=== PATIENT | female | born 1965 | race Two or more races ===

== ENCOUNTER 2020-08-02 16:17 | Emergency (ER) | payer SELFPAY ==
[~2020-08-02] VITALS: Ht 165.1 cm; Wt 72.6 kg
--- NOTE | 2020-08-02 17:10 | Emergency Room Report ---
History of Present Illness General Chief Complaint: Abdominal Pain Source: Patient Present Illness HPI Patient is reports having pain in the right pelvic area. A 54-year-old female presents for increased right lower abdominal pain. Onset for 1 day. Pain is constant in nature. Denies any vomiting or diarrhea. Onset during cooking. Denies similar symptoms in the past. Denies any hematuria or dysuria. 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 Patient History Past Medical History: see triage record Reviewed Nursing Documentation: PMH: Agreed; PSxH: Agreed Nursing Documentation-PMH Past Medical History: No Stated History Review of Systems All Other Systems: negative except mentioned in HPI Physical Exam Vital Signs Date Time Temp Pulse Resp B/P (MAP) Pulse Ox O2 Delivery O2 Flow Rate FiO2 08/02/20 16:37 98.2 68 18 145/108 (120) 96 Room Air Sp02 EP Interpretation: reviewed, normal General Appearance: normal inspection, well appearing, no apparent distress, alert Head: atraumatic ENT: normal ENT inspection, hearing grossly normal, normal voice Neck: normal inspection, full range of motion, supple, no bony tend Respiratory: normal inspection, lungs clear, normal breath sounds, no respiratory distress, no retraction, no wheezing Cardiovascular #1: regular rate, rhythm, no edema Gastrointestinal: normal inspection, normal bowel sounds, non tender, soft, no guarding, no hernia, tenderness - Right lower abdominal tenderness. 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 Differential diagnosis include was not limited to kidney stone, appendicitis, ovarian cyst among others. Because of complexity of patient's case laboratory tests and imaging studies were ordered. Patient's CT imaging showed evidence of right-sided ureteral stone 3 mm. Patient is given pain medications as well as Toradol. Patient was given pain medications with improvement her symptoms. Pelvic ultrasound showed 3 cm ovarian cyst. Patient was advised of ultrasound findings and was advised to follow-up with [facility] for recheck. This medical record is generated with [employer] product craftsman software. There may be some product craftsman discrepancies related to use of this software Labs Test 08/02/20 17:10 White Blood Count 13.7 K/UL (4.8-10.8) Red Blood Count 5.01 M/UL (4.20-5.40) Hemoglobin 14.1 G/DL (12.0-16.0) Hematocrit 44.1 % (37.0-47.0) Mean Corpuscular Volume 88 FL (80-99) Mean Corpuscular Hemoglobin 28.1 PG (27.0-31.0) Mean Corpuscular Hemoglobin Concent 31.9 G/DL (32.0-36.0) Red Cell Distribution Width 13.3 % (11.6-14.8) Platelet Count 440 K/UL (150-450) Mean Platelet Volume 5.4 FL (6.5-10.1) Neutrophils (%) (Auto) 85.1 % (45.0-75.0) Lymphocytes (%) (Auto) 11.9 % (20.0-45.0) Monocytes (%) (Auto) 2.2 % (1.0-10.0) Eosinophils (%) (Auto) 0.2 % (0.0-3.0) Basophils (%) (Auto) 0.7 % (0.0-2.0) Prothrombin Time 10.5 SEC (9.30-11.50) Prothromb Time International Ratio 0.9 (0.9-1.1) Activated Partial Thromboplast Time 27 SEC (23-33) Sodium Level 138 MMOL/L (136-145) Potassium Level 4.0 MMOL/L (3.5-5.1) Chloride Level 104 MMOL/L (98-107) Carbon Dioxide Level 25 MMOL/L (21-32) Anion Gap 9 mmol/L (5-15) Blood Urea Nitrogen 11 mg/dL (7-18) Creatinine 1.0 MG/DL (0.55-1.30) Estimat Glomerular Filtration Rate 58.2 mL/min (>60) Glucose Level 130 MG/DL (74-106) Calcium Level 8.8 MG/DL (8.5-10.1) Total Bilirubin 0.2 MG/DL (0.2-1.0) Aspartate Amino Transf (AST/SGOT) 17 U/L (15-37) Alanine Aminotransferase (ALT/SGPT) 17 U/L (12-78) Alkaline Phosphatase 79 U/L (46-116) Total Protein 7.9 G/DL (6.4-8.2) Albumin 3.5 G/DL (3.4-5.0) Globulin 4.4 g/dL Albumin/Globulin Ratio 0.8 (1.0-2.7) Last Vital Signs Date Time Temp Pulse Resp B/P (MAP) Pulse Ox O2 Delivery O2 Flow Rate FiO2 08/02/20 16:37 98.2 68 18 145/108 (120) 96 Room Air Status: improved Disposition: HOME, SELF-CARE Condition: Stable Scripts Hydrocodone/Acetaminophen 5-325* (HYDROCODONE/ACETAMINOPHEN 5-325*) 1 Each T ablet 1 TAB ORAL Q6H PRN for For Pain, #10 TAB 0 Refills Prov: Nadir Hood MD 08/02/20 Ibuprofen* (MOTRIN*) 400 Mg Tablet 400 MG ORAL Q8H, #30 TAB 0 Refills Prov: Nadir Hood MD 08/02/20 Referrals: NOT CHOSEN IPA/,REFERRING (PCP) Nadir Hood MD Aug 02, 2020 17:09
[2020-08-02 17:11] VITALS: BP 145/108
[2020-08-02] MEDS ORDERED: Omnipaque-300 100ml vial INJ PRN (17:15)
[2020-08-02 17:27] LABS: HEMATOCRIT 44.1 % (37.0-47.0); HEMOGLOBIN 14.1 G/DL (12.0-16.0); MEAN CORPUSCULAR VOLUME 88 FL (80-99); PLATELET COUNT 440 K/UL (150-450); RED BLOOD COUNT 5.01 M/UL (4.20-5.40); RED CELL DISTRIBUTION WIDTH 13.3 % (11.6-14.8); WHITE BLOOD COUNT 13.7 K/UL (4.8-10.8)
[2020-08-02 17:28] LABS: BASOPHILS % (AUTO) 0.7 % (0.0-2.0); EOSINOPHILS % (AUTO) 0.2 % (0.0-3.0); LYMPHOCYTES % (AUTO) 11.9 % (20.0-45.0); MONOCYTES % (AUTO) 2.2 % (1.0-10.0); NEUTROPHILS % (AUTO) 85.1 % (45.0-75.0)
[2020-08-02 17:37] LABS: INR 0.9 (0.9-1.1)
[2020-08-02 17:57] LABS: CALCIUM 8.8 MG/DL (8.5-10.1)
[2020-08-02] MEDS ORDERED: Morphine Sulfate 2mg/ml Inj(IV/IM USE ONLY) IVP ONE (18:00)
[2020-08-02] MEDS ORDERED: Ketorolac 30mg Inj IV ONE (18:00)
[2020-08-02 18:02] LABS: ALBUMIN 3.5 G/DL (3.4-5.0); ALBUMIN/GLOBULIN RATIO 0.8 (1.0-2.7); BILIRUBIN,TOTAL 0.2 MG/DL (0.2-1.0)
--- NOTE | 2020-08-02 18:58 | Diagnostic Imaging Report ---
ADDENDUM - Added by Sonja Kebede MD on 08/02/2020 7:26 PM (-08:00) EXAM: CT Abdomen and Pelvis With Intravenous Contrast CLINICAL HISTORY: PAIN TECHNIQUE: Axial computed tomography images of the abdomen and pelvis with intravenous contrast. CTDI is 6.00 mGy and DLP is 327.40 mGy-cm. One or more of the following dose reduction techniques were used: automated exposure control, adjustment of the mA and/or kV according to patient size, use of iterative reconstruction technique. COMPARISON: No relevant prior studies available. FINDINGS: Lung bases: No mass. No consolidation. ABDOMEN: Liver: Unremarkable. Gallbladder and bile ducts: Removed. Pancreas: Unremarkable. Spleen: Calcified granuloma. Adrenals: Unremarkable. Kidneys and ureters: Mild right hydroureteronephrosis secondary to a 3 mm stone in UVJ. Stomach and bowel: No bowel obstruction. No bowel wall thickening. PELVIS: Appendix: No evidence of appendicitis. Bladder: Unremarkable. Reproductive: 6 cm partially calcified cystic lesion in the left adnexa. ABDOMEN and PELVIS: Intraperitoneal space: Unremarkable. Bones/joints: No acute fractures. Soft tissues: Unremarkable. Vasculature: No abdominal aortic aneurysm. Lymph nodes: No enlarged lymph nodes. IMPRESSION: 1. Mild right hydroureteronephrosis secondary to a 3 mm stone in UVJ. 2. 6 cm partially calcified cystic lesion in the left adnexa. Cannot exclude cystic neoplasm. Recommend outpatient pelvic ultrasound/MRI for better characterization. EXAM: CT Abdomen and Pelvis With Intravenous Contrast CLINICAL HISTORY: PAIN TECHNIQUE: Axial computed tomography images of the abdomen and pelvis with intravenous contrast. CTDI is 6.00 mGy and DLP is 327.40 mGy-cm. One or more of the following dose reduction techniques were used: automated exposure control, adjustment of the mA and/or kV according to patient size, use of iterative reconstruction technique. COMPARISON: No relevant prior studies available. FINDINGS: Lung bases: No mass. No consolidation. ABDOMEN: Liver: Unremarkable. Gallbladder and bile ducts: Removed. Pancreas: Unremarkable. Spleen: Calcified granuloma. Adrenals: Unremarkable. Kidneys and ureters: Mild right hydroureteronephrosis secondary to a 3 L stone in UVJ. Stomach and bowel: No bowel obstruction. No bowel wall thickening. PELVIS: Appendix: No evidence of appendicitis. Bladder: Unremarkable. Reproductive: 6 cm partially calcified cystic lesion in the left adnexa. ABDOMEN and PELVIS: Intraperitoneal space: Unremarkable. Bones/joints: No acute fractures. Soft tissues: Unremarkable. Vasculature: No abdominal aortic aneurysm. Lymph nodes: No enlarged lymph nodes. IMPRESSION: 1. Mild right hydroureteronephrosis secondary to a 3 L stone in UVJ. 2. 6 cm partially calcified cystic lesion in the left adnexa. Cannot exclude cystic neoplasm. Recommend outpatient pelvic ultrasound/MRI for better characterization.
--- NOTE | 2020-08-02 19:47 | Diagnostic Imaging Report ---
EXAM: US Pelvis Transvaginal CLINICAL HISTORY: PAIN TECHNIQUE: Real-time transvaginal pelvic ultrasound with image documentation. Transvaginal imaging was used for better evaluation of the endometrium and adnexa. COMPARISON: 08/02/2020 FINDINGS: Uterus/cervix: No myometrial mass. Normal endometrial thickness. Nabothian cysts. Right ovary: 2.7 cm. No mass. Normal blood flow. Left ovary: 5.5 cm. 3.3 cm cystic lesion with retracted clot. No mass. Normal blood flow. Free fluid: No free fluid. IMPRESSION: Enlarged left ovary with underlying 3.3 cm hemorrhagic cyst with retracted clot. Follow-up in 6-8 weeks to ensure resolution. No torsion.
[2020-08-02] MEDS ORDERED: IBUPROFEN400 MG ORAL (20:24)
[2020-08-02] MEDS ORDERED: HYDROCODON-ACE1 EA15 ORAL (20:24)
[2020-08-02 20:39] VITALS: BP 128/82
--- NOTE | 2020-08-02 20:41 | NUR ---
ER DISCHARGE NOTE: Patient is cleared to be discharged per ERMD, pt is aox4, on room air, with stable vital signs. pt was given dc and prescription instructions, pt was able to verbalize understanding, pt id band and iv site removed without complications. pt is able to ambulate with steady gait. pt took all belongings.
== END 2020-08-02 20:39 | disposition home or self-care (01) ==
LOC: EMR 16:55
DX: N83.202 Unspecified ovarian cyst, left side (principal); N20.1 Calculus of ureter; Z88.0 Allergy status to penicillin
CPT/HCPCS: 74177; 76830; 76856; 80053; 85025; 85610; 85730; 96374; 96375; 99284; J1885; J2270; Q9965